=== PATIENT | male | born 1990 | race American Indian/Alaskan Native ===

== ENCOUNTER 2016-11-11 21:05 | Emergency (ER) | payer SELFPAY ==
[2016-11-12] MEDS ORDERED: DECADRON PO ONE (03:36)
[2016-11-12] MEDS ORDERED: BENADRYL PO ONE (03:37)
--- NOTE | 2016-11-12 03:44 | Emergency Department Report ---
ED Rash HPI - HPI Chief Complaint: Skin Rash Stated Complaint: RASH OVER BODY Time Seen by Provider: 11/12/16 03:36 Duration: 1 week Location: Neck, Chest, Back, Abdomen, Upper Extremities, Lower Extremities Suspected Cause: Unknown Rash Symptoms: Yes Itching, No Facial Swelling, No Tongue/Oral Swelling, No Breathing Difficulties, No Choking Sensation, No Wheezing/Dyspnea, No Peeling, No Blistering, No Fever, No Lightheaded, No Malaise, No Myalgias Severity: moderate Other History: [id number] male comes in for complaint of body rash 1 week. Patient denies any fever or chills no nausea vomiting. He denies any recent URIs. No recent change in deodorant on a wash soap detergent. He reports that the rash is very itchy. Denies any shortness of breathing and no wheezing. ED Review of Systems ROS: Stated complaint: RASH OVER BODY Other details as noted in HPI Comment: All other systems reviewed and negative Skin: as per HPI, rash ED Past Medical Hx - Past Medical History Previous Medical History?: No - Surgical History Past Surgical History?: No - Social History Smoking Status: Current Every Day Smoker Substance Use Type: None - Medications Home Medications: Home Medications Medication Instructions Recorded Confirmed Last Taken Type methylPREDNISolone [Medrol] 4 mg PO QDAY #21 tab.ds.pk 11/12/16 Unknown Rx Rash Exam - Exam General: Vital signs noted. No distress. Alert and acting appropriately. HEENT: No Periorbital Edema, No Conjuctival Injection, No Chemosis, No Perioral Edema, No Tongue Edema, No Uvular Edema, No Compromised Airway, No Drooling Lungs: Yes Good Air Exchange, No Wheezes, No Ronchi, No Stridor, No Cough, No Labored Respirations, No Retractions, No Use of Accessory Muscles, No Other Abnormal Lung Sounds Heart: Yes Regular, No Murmur Skin: Yes Maculopapular Rash, No Urticarial Rash, No Morbilliform rash, No Excoriations, No Weeping, No Tenderness, No Erythema, No Edema, No Encrustations Other: Positive: Abdomen Normal, Neurologic Normal, Musculoskeletal Normal ED Course Vital Signs 11/11/16 21:21 Temperature 98.4 F Pulse Rate 76 Respiratory 20 Rate Blood Pressure 121/80 O2 Sat by Pulse 97 Oximetry - Reevaluation(s) Reevaluation #2: 11/12/16 04:32 H and been reevaluated by this provider post Decadron and Benadryl. Patient reports he feels somewhat better but still having some mild itchiness. ED Medical Decision Making - Medical Decision Making Patient evaluated by this provider in fast track. Try Decadron and Benadryl. Critical care attestation.: If time is entered above; I have spent that time in minutes in the direct care of this critically ill patient, excluding procedure time. ED Disposition Clinical Impression: Rash of entire body Clinical Impression: (Ruled Out): Tonsil pain Disposition: DISCHARGED TO HOME OR SELFCARE Is pt being admited?: No Condition: Stable Instructions: Acute Rash (ED) Additional Instructions: Ache medication as prescribed. If symptoms get worse or does not improve please follow-up with the primary care provider or the emergency room Prescriptions: methylPREDNISolone [Medrol] 4 mg PO QDAY #21 tab.ds.pk Referrals: PRIMARY CARE, [Primary Care Provider] - 3-5 Days [facility] [Provider Group] - 3-5 Days [facility] [Outside] - 3-5 Days Forms: Work/School Release Form(ED)
[2016-11-12 04:50] VITALS: BP 111/63
== END 2016-11-12 04:48 | disposition home or self-care (01) ==
LOC: ED 21:05
DX: R21 Rash and other nonspecific skin eruption (principal); F17.200 Nicotine dependence, unspecified, uncomplicated
CPT/HCPCS: 99282; J8540; Q0163